=== PATIENT | female | born 1975 | race Caucasian/White ===

== ENCOUNTER 2022-08-28 19:16 | Emergency (ER) | payer OTHER ==
[~2022-08-28] VITALS: Ht 157.5 cm; Wt 74.8 kg
--- NOTE | 2022-08-30 07:52 | EKG ---
[facility] [address] [facility] [place], [place] [address] Signed Normal sinus rhythm Normal ECG No previous ECGs available Confirmed by MENDEZ CHOI MD [id number] on 08/30/2022 7:52:30 AM Electronically Signed By: MENDEZ CHOI MD 08/30/22 0752 PATIENT NAME: LUCERO SANTILLAN Electrocardiogram DATE OF : 77 PHYSICIAN: MENDEZ CHOI MD REPORT #: [id number] REPORT IS CONFIDENTIAL AND NOT TO BE RELEASED WITHOUT AUTHORIZATION
== END 2022-08-28 21:09 | disposition home or self-care (01) ==
LOC: ED 19:16
DX: R42 Dizziness and giddiness (principal); Z88.8 Allergy status to other drugs, medicaments and biological substances
CPT/HCPCS: 36415; 80053; 83735; 84443; 85025; 93005; 93010; 96360; 99284-25; J7121